=== PATIENT | male | born 1990 | race Caucasian/White ===

== ENCOUNTER 2016-12-10 19:18 | Emergency (ER) | payer SELFPAY ==
[~2016-12-10] VITALS: Ht 177.8 cm; Wt 72.0 kg
[~2016-12-10 19:18] MED LIST: IBUP800T23 PO
[2016-12-10 19:59] VITALS: BP 120/76; PULSE 82; RESP 18; TEMP 99; O2SAT 99
--- NOTE | 2016-12-10 20:07 | PD ---
HPI Chief Complaint: Cold / Flu Symptoms Time Seen by Provider: 20:07 PFSH Past Medical History Diminished Hearing: No Social History Alcohol Use: Yes (OCCASIONAL) Tobacco Use: Yes Substance Use: No Allergies-Medications (Allergen,Severity, Reaction): Coded Allergies: No Known Allergies (Unverified , 12/10/16) Reported Meds & Prescriptions Reported Meds & Active Scripts Active No Active Prescriptions or Reported Medications Data Data Last Documented VS Vital Signs Date Time Temp Pulse Resp B/P Pulse Ox O2 Delivery O2 Flow Rate FiO2 12/10/16 20:08 18 99 Room Air 12/10/16 19:59 99.0 82 120/76 Orders Electrocardiogram (12/10/16 20:21) Ckmb (Isoenzyme) Profile (12/10/16 20:21) Complete Blood Count With Diff (12/10/16 20:21) Comprehensive Metabolic Panel (12/10/16 20:21) D-Dimer (12/10/16 20:21) Prothrombin Time / Inr (Pt) (12/10/16 20:21) Act Partial Throm Time (Ptt) (12/10/16 20:21) Troponin I (12/10/16 20:21) Lipase (12/10/16 20:21) Chest, Single Ap (12/10/16 20:21) Ecg Monitoring (12/10/16 20:21) Iv Access Insert/Monitor (12/10/16 20:21) Oximetry (12/10/16 20:21) Sodium Chloride 0.9% Flush (Ns Flush) (12/10/16 20:30) Sodium Chlorid 0.9% 500 Ml Inj (Ns 500 M (12/10/16 20:30) Drug Screen, Random Urine (12/10/16 20:21) Influenzae A/B Antigen (12/10/16 20:21) Ketorolac Inj (Toradol Inj) (12/10/16 20:30) MDM Scripts No Active Prescriptions or Reported Meds Tata Andrews Dec 10, 2016 20:07
[2016-12-10] MEDS ORDERED: KETOROLAC TROMETHAMINE 30 MG/ML (IVP) VIAL IV PUSH ONE (20:30)
[2016-12-10] MEDS ORDERED: SODIUM CHLORIDE 0.9% FLUSH 10 ML FLUSH IVF PRN (20:30)
[2016-12-10] MEDS ORDERED: SODIUM CHLORID 0.9% 500 ML INJ 500 ML IV ONE (20:30)
--- NOTE | 2016-12-10 20:32 | PD ---
HPI Chief Complaint: Chest Pain Time Seen by Provider: 20:07 Travel History International Travel<30 days: No Contact w/Intl Traveler<30days: No Traveled to known affect area: No History of Present Illness HPI Patient is a 26-year-old male who presents to emergency room with complaints of chest pain. Patient reports that he has been having left-sided sharp, stabbing pain to his left chest which radiates to his shoulder and back which has been ongoing for the past 2 days. Patient reports that nothing makes the pain better , reports that taking a deep breath makes his symptoms worse. Denies any recent travels or trips. Patient does report that his had a slight URI over the past 2 days. Patient denies history of hypertension, hyperlipidemia, coronary disease, denies history of chest pain in the past. Patient is a smoker , reports that he does abuse illegal drugs (opiates) and denies use of cocaine. Denies family history of [place], CAD. Patient reports that he was seen at [facility] 2 days ago and was discharged after he was given some pain medications and had an EKG obtained. [facility] Past Medical History Medical History: Denies Significant Hx Diminished Hearing: No Tetanus Vaccination: > 5 Years Influenza Vaccination: No Past Surgical History Surgical History: No Previous Surgery Family History Family History: Negative Family Myocardial Infarction: No Social History Alcohol Use: Yes (OCCASIONAL) Tobacco Use: Yes Substance Use: Yes (opiates) Allergies-Medications (Allergen,Severity, Reaction): Coded Allergies: No Known Allergies (Unverified , 12/10/16) Reported Meds & Prescriptions Reported Meds & Active Scripts Active No Active Prescriptions or Reported Medications Review of Systems General / Constitutional: No: Fever Eyes: No: Visual changes HENT: No: Headaches Cardiovascular: Positive: Chest Pain or Discomfort Respiratory: Positive: Cough, Shortness of Breath Gastrointestinal: No: Abdominal Pain Genitourinary: No: Dysuria Musculoskeletal: No: Pain Skin: No Rash Neurologic: No: Weakness Psychiatric: No: Depression Endocrine: No: Polydipsia Hematologic/Lymphatic: No: Easy Bruising Physical Exam Narrative GENERAL: No acute distress, nontoxic SKIN: Warm and dry. HEAD: Atraumatic. Normocephalic. EYES: Pupils equal and round. No scleral icterus. No injection or drainage. ENT: No nasal bleeding or discharge. Mucous membranes pink and moist. NECK: Trachea midline. No JVD. CARDIOVASCULAR: Regular rate and rhythm. No murmur appreciated. RESPIRATORY: No accessory muscle use. Clear to auscultation. Breath sounds equal bilaterally. GASTROINTESTINAL: Abdomen soft, non-tender, nondistended. Hepatic and splenic margins not palpable. MUSCULOSKELETAL: No obvious deformities. No clubbing. No cyanosis. No edema. NEUROLOGICAL: Awake and alert. Normal speech. PSYCHIATRIC: Appropriate mood and affect; insight and judgment normal. Data Data Last Documented VS Vital Signs Date Time Temp Pulse Resp B/P Pulse Ox O2 Delivery O2 Flow Rate FiO2 12/10/16 20:36 99 Room Air 12/10/16 20:08 18 12/10/16 19:59 99.0 82 120/76 Orders Electrocardiogram (12/10/16 20:21) Ckmb (Isoenzyme) Profile (12/10/16 20:21) Complete Blood Count With Diff (12/10/16 20:21) Comprehensive Metabolic Panel (12/10/16 20:21) D-Dimer (12/10/16 20:21) Prothrombin Time / Inr (Pt) (12/10/16 20:21) Act Partial Throm Time (Ptt) (12/10/16 20:21) Troponin I (12/10/16 20:21) Lipase (12/10/16 20:21) Chest, Single Ap (12/10/16 20:21) Ecg Monitoring (12/10/16 20:21) Iv Access Insert/Monitor (12/10/16 20:21) Oximetry (12/10/16 20:21) Sodium Chloride 0.9% Flush (Ns Flush) (12/10/16 20:30) Sodium Chlorid 0.9% 500 Ml Inj (Ns 500 M (12/10/16 20:30) Drug Screen, Random Urine (12/10/16 20:21) Influenzae A/B Antigen (12/10/16 20:21) Ketorolac Inj (Toradol Inj) (12/10/16 20:30) CKMB (12/10/16 20:30) CKMB% (12/10/16 20:30) Ct Pulmonary Angiogram (12/10/16 21:11) Electrocardiogram (12/10/16 ) Iohexol 350 Inj (Omnipaque 350 Inj) (12/10/16 21:52) Labs Laboratory Tests Test 12/10/16 20:30 White Blood Count 7.3 TH/MM3 Red Blood Count 5.15 MIL/MM3 Hemoglobin 15.3 GM/DL Hematocrit 45.4 % Mean Corpuscular Volume 88.3 FL Mean Corpuscular Hemoglobin 29.8 PG Mean Corpuscular Hemoglobin 33.7 % Concent Red Cell Distribution Width 11.5 % Platelet Count 359 TH/MM3 Mean Platelet Volume 7.0 FL Neutrophils (%) (Auto) 60.9 % Lymphocytes (%) (Auto) 26.2 % Monocytes (%) (Auto) 8.9 % Eosinophils (%) (Auto) 3.0 % Basophils (%) (Auto) 1.0 % Neutrophils # (Auto) 4.5 TH/MM3 Lymphocytes # (Auto) 1.9 TH/MM3 Monocytes # (Auto) 0.6 TH/MM3 Eosinophils # (Auto) 0.2 TH/MM3 Basophils # (Auto) 0.1 TH/MM3 CBC Comment DIFF FINAL Differential Comment Prothrombin Time 10.7 SEC Prothromb Time International 1.0 RATIO Ratio Activated Partial 30.8 SEC Thromboplast Time D-Dimer Quantitative (PE/DVT) 0.59 MG/L FEU Sodium Level 141 MEQ/L Potassium Level 3.9 MEQ/L Chloride Level 104 MEQ/L Carbon Dioxide Level 30.5 MEQ/L Anion Gap 7 MEQ/L Blood Urea Nitrogen 13 MG/DL Creatinine 1.10 MG/DL Estimat Glomerular Filtration 82 ML/MIN Rate Random Glucose 69 MG/DL Calcium Level 8.6 MG/DL Total Bilirubin 0.3 MG/DL Aspartate Amino Transf 12 U/L (AST/SGOT) Alanine Aminotransferase 24 U/L (ALT/SGPT) Alkaline Phosphatase 62 U/L Total Creatine Kinase 152 U/L Creatine Kinase MB 1.6 NG/ML Troponin I LESS THAN 0.02 NG/ML Total Protein 7.7 GM/DL Albumin 3.5 GM/DL Lipase 98 U/L [facility] Medical Decision Making Medical Screen Exam Complete: Yes Emergency Medical Condition: Yes Interpretation(s) EKG at 1922: Normal sinus rhythm at 82 bpm, qt/qtc: 366/404, no acute st or t wave changes Repeat ekg at 2100: NSR at 73bpm, qt/qtc: 392/414, no acute st or t wave changes Vital Signs Date Time Temp Pulse Resp B/P Pulse Ox O2 Delivery O2 Flow Rate FiO2 3/23/17 20:08 18 99 Room Air 12/10/16 19:59 99.0 82 18 120/76 99 CBC & BMP Diagram 12/10/16 20:30 Microbiology Date/Time Procedure Status Source Growth 12/10/16 20:30 Influenza Types A,B Antigen (MISHA) Received Nasal Aspirate Pending Last Impressions Chest X-Ray 12/10/162020 Signed Impressions: Service Date/Time: November 20:35 - CONCLUSION: Normal examination. Ethan Yost MD Laboratory Tests Test 12/10/16 20:30 White Blood Count 7.3 TH/MM3 (4.0-11.0) Red Blood Count 5.15 MIL/MM3 (4.50-5.90) Hemoglobin 15.3 GM/DL (13.0-17.0) Hematocrit 45.4 % (39.0-51.0) Mean Corpuscular Volume 88.3 FL (80.0-100.0) Mean Corpuscular Hemoglobin 29.8 PG (27.0-34.0) Mean Corpuscular Hemoglobin 33.7 % Concent (32.0-36.0) Red Cell Distribution Width 11.5 % (11.6-17.2) Platelet Count 359 TH/MM3 (150-450) Mean Platelet Volume 7.0 FL (7.0-11.0) Neutrophils (%) (Auto) 60.9 % (16.0-70.0) Lymphocytes (%) (Auto) 26.2 % (9.0-44.0) Monocytes (%) (Auto) 8.9 % (0.0-8.0) Eosinophils (%) (Auto) 3.0 % (0.0-4.0) Basophils (%) (Auto) 1.0 % (0.0-2.0) Neutrophils # (Auto) 4.5 TH/MM3 (1.8-7.7) Lymphocytes # (Auto) 1.9 TH/MM3 (1.0-4.8) Monocytes # (Auto) 0.6 TH/MM3 (0-0.9) Eosinophils # (Auto) 0.2 TH/MM3 (0-0.4) Basophils # (Auto) 0.1 TH/MM3 (0-0.2) CBC Comment DIFF FINAL Differential Comment Prothrombin Time 10.7 SEC (9.8-11.6) Prothromb Time International 1.0 RATIO Ratio Activated Partial 30.8 SEC Thromboplast Time (24.3-30.1) D-Dimer Quantitative (PE/DVT) 0.59 MG/L FEU (0.00-0.50) Sodium Level 141 MEQ/L (136-145) Potassium Level 3.9 MEQ/L (3.5-5.1) Chloride Level 104 MEQ/L (98-107) Carbon Dioxide Level 30.5 MEQ/L (21.0-32.0) Anion Gap 7 MEQ/L (5-15) Blood Urea Nitrogen 13 MG/DL (7-18) Creatinine 1.10 MG/DL (0.60-1.30) Estimat Glomerular Filtration 82 ML/MIN (>89) Rate Random Glucose 69 MG/DL (74-106) Calcium Level 8.6 MG/DL (8.5-10.1) Total Bilirubin 0.3 MG/DL (0.2-1.0) Aspartate Amino Transf 12 U/L (15-37) (AST/SGOT) Alanine Aminotransferase 24 U/L (12-78) (ALT/SGPT) Alkaline Phosphatase 62 U/L (45-117) Total Creatine Kinase 152 U/L (39-308) Creatine Kinase MB 1.6 NG/ML (0.5-3.6) Troponin I LESS THAN 0.02 NG/ML (0.02-0.05) Total Protein 7.7 GM/DL (6.4-8.2) Albumin 3.5 GM/DL (3.4-5.0) Lipase 98 U/L (73-393) Last Impressions CT Angiography 12/10/162110 Signed Impressions: Service Date/Time: November 21:35 - CONCLUSION: 1. Negative for pulmonary embolus. No focal consolidation or effusion. Small 3 mm nodule left lower lobe. Ethan Yost MD Chest X-Ray 12/10/162020 Signed Impressions: Service Date/Time: November 20:35 - CONCLUSION: Normal examination. Ethan Yost MD Differential Diagnosis ACS, arrhythmia, PE, pneumothorax, drug abuse, costochondritis, electrolyte abnormality Narrative Course Patient is a 26-year-old male who presents to emergency room with complaints of chest pain. Patient reports that he has been having left-sided chest pain which is sharp and stabbing in nature and radiates to his shoulder into his back. Patient reports that pain has been constant for the past 2 days associated shortness of breath. Patient was seen at report this 2 days ago, reports that he had a normal workup and was sent home. Patient reports that he is still having pain. EKG obtained upon arrival to emergency room. EKG with no acute ST-T wave changes. Patient was placed on a telemetry monitor. Labs as well as cardiac enzymes and x-ray of the chest ordered to further evaluate symptoms. I do not believe the patient is having ACS at this time, his symptoms are atypical for cardiac chest pain. Given that he has had a recent URI, 1 set of troponin was sent to evaluate for possible pericarditis or myocarditis or infectious etiology of his chest pain. We'll medicate patient with Toradol for pain, will continue to monitor patient on a telemetry monitor. X-ray chest ordered to evaluate for possible pneumothorax. Laboratory Tests Test 12/10/16 20:30 White Blood Count 7.3 TH/MM3 (4.0-11.0) Red Blood Count 5.15 MIL/MM3 (4.50-5.90) Hemoglobin 15.3 GM/DL (13.0-17.0) Hematocrit 45.4 % (39.0-51.0) Mean Corpuscular Volume 88.3 FL (80.0-100.0) Mean Corpuscular Hemoglobin 29.8 PG (27.0-34.0) Mean Corpuscular Hemoglobin 33.7 % Concent (32.0-36.0) Red Cell Distribution Width 11.5 % (11.6-17.2) Platelet Count 359 TH/MM3 (150-450) Mean Platelet Volume 7.0 FL (7.0-11.0) Neutrophils (%) (Auto) 60.9 % (16.0-70.0) Lymphocytes (%) (Auto) 26.2 % (9.0-44.0) Monocytes (%) (Auto) 8.9 % (0.0-8.0) Eosinophils (%) (Auto) 3.0 % (0.0-4.0) Basophils (%) (Auto) 1.0 % (0.0-2.0) Neutrophils # (Auto) 4.5 TH/MM3 (1.8-7.7) Lymphocytes # (Auto) 1.9 TH/MM3 (1.0-4.8) Monocytes # (Auto) 0.6 TH/MM3 (0-0.9) Eosinophils # (Auto) 0.2 TH/MM3 (0-0.4) Basophils # (Auto) 0.1 TH/MM3 (0-0.2) CBC Comment DIFF FINAL Differential Comment Prothrombin Time 10.7 SEC (9.8-11.6) Prothromb Time International 1.0 RATIO Ratio Activated Partial 30.8 SEC Thromboplast Time (24.3-30.1) D-Dimer Quantitative (PE/DVT) 0.59 MG/L FEU (0.00-0.50) Sodium Level 141 MEQ/L (136-145) Potassium Level 3.9 MEQ/L (3.5-5.1) Chloride Level 104 MEQ/L (98-107) Carbon Dioxide Level 30.5 MEQ/L (21.0-32.0) Anion Gap 7 MEQ/L (5-15) Blood Urea Nitrogen 13 MG/DL (7-18) Creatinine 1.10 MG/DL (0.60-1.30) Estimat Glomerular Filtration 82 ML/MIN (>89) Rate Random Glucose 69 MG/DL (74-106) Calcium Level 8.6 MG/DL (8.5-10.1) Total Bilirubin 0.3 MG/DL (0.2-1.0) Aspartate Amino Transf 12 U/L (15-37) (AST/SGOT) Alanine Aminotransferase 24 U/L (12-78) (ALT/SGPT) Alkaline Phosphatase 62 U/L (45-117) Total Creatine Kinase 152 U/L (39-308) Troponin I LESS THAN 0.02 NG/ML (0.02-0.05) Total Protein 7.7 GM/DL (6.4-8.2) Albumin 3.5 GM/DL (3.4-5.0) Lipase 98 U/L (73-393) Last Impressions Chest X-Ray 12/10/162020 Signed Impressions: Service Date/Time: November 20:35 - CONCLUSION: Normal examination. Ethan Yost MD Patient reevaluated, patient is feeling better after he received 15 mg of Toradol. Patient does have a positive d-dimer, discussed with him need to send him for PE chest to evaluate for possible PE. Patient agreeable to further testing. Influenza a and B antigen negative CTA pending Last Impressions CT Angiography 12/10/162110 Signed Impressions: Service Date/Time: November 21:35 - CONCLUSION: 1. Negative for pulmonary embolus. No focal consolidation or effusion. Small 3 mm nodule left lower lobe. Ethan Yost MD Chest X-Ray 12/10/162020 Signed Impressions: Service Date/Time: , December 10, 2016 20:35 - CONCLUSION: Normal examination. Ethan Yost MD Repeat ekg at 2100: NSR at 73bpm, qt/qtc: 392/414, no acute st or t wave changes Patient is feeling much better at this time. Copies of patient's studies were given to him as he will need to follow-up with all studies including pulmonary nodule. 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 Patient with low risk for cardiac chest pain. Given that this is second visit to the emergency room for chest pain, will give him referral to cardiology for outpatient workup. I discussed with patient that he is low risk for true cardiac chest pain and patient is agreeable to outpatient workup. Signs and symptoms of when to return to the emergency room was reviewed with patient in detail. Diagnosis Primary Impression: Costochondritis, acute Additional Impressions: Chest pain Qualified Code: R07.9 - Chest pain, unspecified type Pulmonary nodule Smoking addiction Referrals: Jimenez Bright MD, Vincent G DO Patient Instructions: General Instructions Additional Instructions: Please provide patient with a copy of his lab work and studies at discharge Please follow-up with your primary care doctor in 2-3 days Please follow-up with customer care representative as outpatient Return to the emergency room as needed Return to emergency with symptoms return Please bring your CT Chest result to your doctor's office as you will need to follow up on the lung nodule seen on your studies from today Med/Other Pt SpecificInfo: Prescription(s) given Scripts Naproxen 500 Mg [id number] Mg PO BID #60 TAB Ref 0 Prov:Agueda Thornton DO 12/10/16 Disposition: 01 DISCHARGE HOME Condition: Stable Agueda Thornton DO Dec 10, 2016 20:32
[2016-12-10 20:36] VITALS: O2SAT 99
[2016-12-10 20:53] LABS: CHLORIDE 104 MEQ/L (98-107); POTASSIUM 3.9 MEQ/L (3.5-5.1); SODIUM (NA) 141 MEQ/L (136-145)
[2016-12-10 20:54] LABS: AUTOMATED NEUTROPHIL # 4.5 TH/MM3 (1.8-7.7); BASOPHIL # 0.1 TH/MM3 (0-0.2); EOSINOPHIL # 0.2 TH/MM3 (0-0.4); HEMATOCRIT 45.4 % (39.0-51.0); HEMO FLAGS DIFF FINAL; LYMPH % 26.2 % (9.0-44.0); LYMPHOCYTE # 1.9 TH/MM3 (1.0-4.8); MEAN CELL VOLUME 88.3 FL (80.0-100.0); MEAN CORPUSCULAR HEMOGLOBIN 29.8 PG (27.0-34.0); MEAN CORPUSCULAR HGB CONC 33.7 % (32.0-36.0); MONO % 8.9 % (0.0-8.0); NEUT % 60.9 % (16.0-70.0); PLATELET COUNT 359 TH/MM3 (150-450); RED BLOOD COUNT 5.15 MIL/MM3 (4.50-5.90); RED CELL DISTRIBUTION WIDTH 11.5 % (11.6-17.2); WHITE BLOOD COUNT 7.3 TH/MM3 (4.0-11.0)
[2016-12-10 20:57] LABS: ANION GAP 7 MEQ/L (5-15); BICARBONATE 30.5 MEQ/L (21.0-32.0); BLOOD UREA NITROGEN 13 MG/DL (7-18)
[2016-12-10 20:59] LABS: ALT (GPT) 24 U/L (12-78); AST (GOT) 12 U/L (15-37)
[2016-12-10 21:00] LABS: GLOMERULAR FILTRATION RATE 82 ML/MIN (>89)
[2016-12-10 21:01] LABS: APTT (PATIENT) 30.8 SEC (24.3-30.1); PROTHROMBIN TIME - PATIENT 10.7 SEC (9.8-11.6); TOTAL BILIRUBIN ADULT 0.3 MG/DL (0.2-1.0)
[2016-12-10 21:02] LABS: ALKALINE PHOSPHATASE 62 U/L (45-117); CREATINE KINASE 152 U/L (39-308)
--- NOTE | 2016-12-10 21:02 | RADHPO ---
EXAM DATE/TIME: 12/10/2016 20:35 [facility] COMPARISON: No previous studies available for comparison. INDICATIONS : Chest pain. MEDICAL HISTORY : None. SURGICAL HISTORY : None. ENCOUNTER: Initial ACUITY: 3 days PAIN SCORE: 8/10 LOCATION: Bilateral chest FINDINGS: A single view of the chest demonstrates the lungs to be symmetrically aerated without evidence of mas s, infiltrate or effusion. The cardiomediastinal contours are unremarkable. Osseous structures are intact. CONCLUSION: Normal examination. Ethan Yost MD on December 10, 2016 at 21:00 Board Certified Radiologist. This report was verified electronically.
[2016-12-10 21:15] LABS: CKMB 1.6 NG/ML (0.5-3.6)
[2016-12-10] MEDS ORDERED: IOHEXOL 350 MG/ML 10 ML VIAL (for RAD DIAG) IV ONE (21:52)
[2016-12-10 22:00] VITALS: BP 122/80; PULSE 74; RESP 18; O2SAT 99
--- NOTE | 2016-12-10 22:06 | RADHPO ---
EXAM DATE/TIME: 12/10/2016 21:35 [facility] COMPARISON: No previous studies available for comparison. INDICATIONS : Chest pain for five days. IV CONTRAST: 75 cc Omnipaque 350 (iohexol) IV RADIATION DOSE: 9.31 CTDIvol (mGy) MEDICAL HISTORY : None SURGICAL HISTORY : None. ENCOUNTER: Initial ACUITY: 4 - 6 days PAIN SCALE: 7/10 LOCATION: chest TECHNIQUE: Volumetric scanning of the chest was performed using a pulmonary embolism protocol MIP images were re constructed. Using automated exposure control and adjustment of the mA and/or kV according to patien t size, radiation dose was kept as low as reasonably achievable to obtain optimal diagnostic quality images. FINDINGS: PULMONARY ARTERIES: No filling defects are seen in the pulmonary arteries through the segmental level. LUNGS: There is no consolidation or pneumothorax . Small 3 mm nodule left lower lobe. PLEURAE: There is no pleural thickening or pleural effusion. MEDIASTINUM: There is good visualization of the great vessels of the middle mediastinum. No evidence of mediastin al or hilar adenopathy/mass. MUSCULOSKELETAL: Within normal limits for patient age. MISCELLANEOUS: The visualized upper abdominal organs demonstrate no acute abnormality. CONCLUSION: 1. Negative for pulmonary embolus. No focal consolidation or effusion. Small 3 mm nodule left lower l obe. Ethan Yost MD on December 10, 2016 at 21:59 Board Certified Radiologist. This report was verified electronically.
[2016-12-10] MEDS ORDERED: NAPR500T PO (22:20)
--- NOTE | 2016-12-12 11:10 | EKG ---
Date Performed: 12/10/2016 Time Performed: 21:01:42 PTAGE: 26 years EKG: Sinus rhythm Normal ECG PREVIOUS TRACING : 12/10/2016 19.23 DOCTOR: Julia Grant Interpretating Date/Time 12/12/2016 11:05:32
--- NOTE | 2016-12-12 11:12 | EKG ---
Date Performed: 12/10/2016 Time Performed: 19:23:06 PTAGE: 26 years EKG: Sinus rhythm Normal ECG NO PREVIOUS TRACING DOCTOR: Julia Grant Interpretating Date/Time 12/12/2016 11:07:52
== END 2016-12-10 23:08 | disposition home or self-care (01) ==
LOC: PHEFT 19:18
DX: M94.0 Chondrocostal junction syndrome [Tietze] (principal); R91.1 Solitary pulmonary nodule; F17.210 Nicotine dependence, cigarettes, uncomplicated; F11.20 Opioid dependence, uncomplicated
CPT/HCPCS: 71010; 71275; 80053; 82550; 82552; 83690; 84484; 85025; 85379; 85610; 85730; 87804; 93005; J1885; J7040; Q9967; 96361; 96374

== ENCOUNTER 2018-07-04 14:20 | Inpatient (IN) ==
[2018-07-04] MEDS ORDERED: Sod Chloride 0.9% Inj 1,000 ML IV.CONT SCH (14:45)
[2018-07-04 14:56] LABS: Baso # (Auto) 0.1 th/mm3 (0.0-0.2); Baso % (Auto) 0.9 % (0.0-2.0); Eos # (Auto) 0.1 th/mm3 (0.0-0.4); Eos % (Auto) 1.3 % (0.0-4.0); Hematocrit 42.6 % (39.0-51.0); Hemoglobin 14.8 gm/dL (13.0-17.0); Lymph # (Auto) 1.9 th/mm3 (1.0-4.8); Lymph % (Auto) 22.2 % (9.0-44.0); Mean Corpuscular HGB Conc 34.8 % (32.0-36.0); Mean Corpuscular Hemoglobin 31.3 pg (27.0-34.0); Mean Corpuscular Volume 90.1 fL (80.0-100.0); Mono # (Auto) 0.7 th/mm3 (0.0-0.9); Mono % (Auto) 8.4 % (0.0-8.0); Neut # (Auto) 5.8 th/mm3 (1.8-7.7); Neut % (Auto) 67.2 % (16.0-70.0); Platelet Count 312 th/mm3 (150-450); Red Blood Count 4.73 mil/mm3 (4.50-5.90); Red Cell Distribution Width 12.5 % (11.6-17.2); White Blood Count 8.6 th/mm3 (4.0-11.0)
[2018-07-04] MEDS ORDERED: Morphine Inj 4 MG/ML Vial IV.PUSH ONE ×3 (15:08→16:46)
[2018-07-04 15:11] LABS: Activated Partial Thrombo Time 24.2 sec (24.3-30.1); Prothrombin Time 9.9 sec (9.8-11.6)
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
[2018-07-04] MEDS ORDERED: HYDROmorphone PF Inj 0.5 MG/0.5 ML Syringe IV.PUSH PRN (18:10)
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
[2018-07-04] MEDS: HYDROmorphone PF Inj 2 MG/ML Vial IV.PUSH PRN ×2 (18:44→22:56)
[2018-07-04] MEDS: Sod Chloride 0.9% Inj 1,000 ML IV.CONT SCH (20:17)
[2018-07-05] MEDS: HYDROmorphone PF Inj 2 MG/ML Vial IV.PUSH PRN ×2 (03:10→08:54)
[2018-07-05] MEDS: Sod Chloride 0.9% Inj 1,000 ML IV.CONT SCH ×2 (05:43→18:02)
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
[2018-07-05 07:20] LABS: Baso # (Auto) 0.1 th/mm3 (0.0-0.2); Baso % (Auto) 0.6 % (0.0-2.0); Eos # (Auto) 0.4 th/mm3 (0.0-0.4); Eos % (Auto) 3.3 % (0.0-4.0); Hematocrit 44.4 % (39.0-51.0); Hemoglobin 15.3 gm/dL (13.0-17.0); Lymph # (Auto) 2.1 th/mm3 (1.0-4.8); Lymph % (Auto) 16.7 % (9.0-44.0); Mean Corpuscular HGB Conc 34.6 % (32.0-36.0); Mean Corpuscular Hemoglobin 31.1 pg (27.0-34.0); Mean Platelet Volume 7.7 fL (7.0-11.0); Mono % (Auto) 8.2 % (0.0-8.0); Neut # (Auto) 8.8 th/mm3 (1.8-7.7); Neut % (Auto) 71.2 % (16.0-70.0); Platelet Count 321 th/mm3 (150-450); Red Blood Count 4.93 mil/mm3 (4.50-5.90); Red Cell Distribution Width 12.7 % (11.6-17.2); White Blood Count 12.4 th/mm3 (4.0-11.0)
[2018-07-05 07:45] LABS: Albumin 3.7 g/dL (3.4-5.0); Anion Gap 9 meq/L (5-15); Aspartate Aminotransferase 28 U/L (15-37); Blood Urea Nitrogen 8 mg/dL (7-18); Calcium 8.8 mg/dL (8.5-10.1); Carbon Dioxide 24.8 meq/L (21.0-32.0); Chloride 102 meq/L (98-107); Glomerular Filtration Rate Greater Than 89 mL/min (>89); Glucose,Random 91 mg/dL (74-106); Potassium 3.8 meq/L (3.5-5.1); Sodium 136 meq/L (136-145)
[2018-07-05 07:47] LABS: Alanine Aminotransferase 45 U/L (12-78)
[2018-07-05 07:49] LABS: Alkaline Phosphatase 57 U/L (45-117); Total Protein 7.9 g/dL (6.4-8.2)
[2018-07-05] MEDS ORDERED: Chlorhexidine Gluconate 2% 1 Pack (2 Cloths) TOPICAL ONE (11:45)
[2018-07-05] MEDS ORDERED: Metoprolol Tartrate 25 MG Tablet PO ONE (11:45)
[2018-07-05] MEDS ORDERED: Sodium Chlor 0.9% Inj 500 ML IV.CONT ONE (11:45)
[2018-07-05] MEDS ORDERED: Glycopyrrolate Inj 1 MG/5 ML Syringe IV.PUSH ONE (13:12)
[2018-07-05] MEDS ORDERED: Ketorolac Inj 30 MG/ML (IVP) Vial IV.PUSH ONE (13:12)
[2018-07-05] MEDS ORDERED: Neostigmine Inj 5 MG/5 ML Syringe IV.PUSH ONE (13:12)
[2018-07-05] MEDS ORDERED: Lidocaine PF 1% Inj 5 ML Syringe OTHER ONE (13:12)
[2018-07-05] MEDS ORDERED: Post-op Orders (for Pharmacy) OTHER STA (14:44)
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
[2018-07-05] MEDS ORDERED: *Meperidine Inj 25 MG/ML Vial PERIprocedural Use ONLY ONE (15:29)
[2018-07-05] MEDS ORDERED: fentaNYL Citrate Inj 100 MCG/2 ML Ampul ONE ×2 (15:30)
[2018-07-05] MEDS ORDERED: *morphine SULFATE 4 MG/ML PERIprocedure ONLY ONE (15:42)
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
[2018-07-05] MEDS: Calcium/Vitamin D 250/125 MG Tablet PO SCH (18:02)
[2018-07-05] MEDS: ceFAZolin Inj 2,000 MG in Sodium Chlor 0.9% Inj 80 ML IV.SIG SCH (21:22)
[2018-07-05] MEDS: Senna/Docusate Sodium 8.6/50 MG Tablet PO SCH (21:23)
[2018-07-06] MEDS: Sod Chloride 0.9% Inj 1,000 ML IV.CONT SCH (01:46)
[2018-07-06] MEDS: ceFAZolin Inj 2,000 MG in Sodium Chlor 0.9% Inj 80 ML IV.SIG SCH (05:06)
--- NOTE | 2018-07-06 06:50 | P.DCO ---
- Occupational Therapy Right Upper Extremity Weight Bearing: Non-weight bearing Right Upper Extremity Range of Motion: Pendular - Nursing Dressing changes: Daily dressing change, Xeroform, Coverderm/Primapore - Certification Need for Home Health services: I have seen patient Hugo Franco on 07/06/18. My clinical findings support the need for the requested home health care services because: Need for Home Health Services: Limited mobility due to disease progression Homebound Certification: I certify that my clinical findings support that this patient is homebound because: Homebound Certification: Post-op weakness
--- NOTE | 2018-07-06 06:50 | P.PNOP ---
Subjective Interval history: POD 1 s/p ORIF right distal humerus fx doing well. states pain in arm but controlled. still reports weakness of hand Physical Exam Vital signs: Vital Signs 07/05/18 08:00 07/05/18 15:20 07/05/18 15:35 Temperature 97.9 F 98.0 F Pulse Rate 58 L 58 L 59 L Respiratory Rate 17 20 18 Blood Pressure 140/75 136/88 117/67 Pulse Oximetry 97 100 100 07/05/18 15:50 07/05/18 16:00 07/05/18 19:07 Temperature 98.2 F 98.0 F Pulse Rate 57 L 55 L 59 L Respiratory Rate 18 20 17 Blood Pressure 136/88 151/88 H 134/74 Pulse Oximetry 100 100 95 07/05/18 20:45 07/05/18 22:50 07/06/18 00:00 Temperature 98.3 F Pulse Rate 89 Respiratory Rate 17 18 15 Blood Pressure 131/67 Pulse Oximetry 99 07/06/18 04:00 07/06/18 05:06 Temperature 98.0 F Pulse Rate 86 Respiratory Rate 15 18 Blood Pressure 139/69 Pulse Oximetry 97 Intake & Output 07/05/18 07/05/18 07/06/18 06:59 18:59 06:59 Intake Total 1000 / 1000 2240 / 2240 700 / 700 Output Total 75 / 75 Balance 1000 / 1000 2165 / 2165 700 / 700 Weight 90.718 kg 71.5 kg Intake: IV 1000 / 1000 1000 / 1000 200 / 200 NS Inj 1,000 ML @ 100 mls/hr IV 1000 / 1000 1000 / 1000 .CONT .Q10H [facility] Rx#:[id number] Ancef Inj 2,000 MG In NS Inj 80 200 / 200 ML @ 200 mls/hr IV.SIG Q8H [facility] Rx#:[id number] Oral 240 / 240 500 / 500 Anesthesia Amount 1000 / 1000 Output: Estimated Blood Loss 75 / 75 Other: # Voids 1 4 Date of Last Bowel Movement 07/04/18 07/04/18 Weight On Admission 90.718 kg Narrative: RUE: +long arm splint. intact. full sensation to median/ulnar nerve. weakness to extension of wrist and fingers Results - Labs CBC & Chem 7: 07/05/18 05:37 07/05/18 05:37 Laboratory Results - last 24 hr 07/05/18 07/05/18 05:37 05:37 WBC 12.4 H RBC 4.93 Hgb 15.3 Hct 44.4 MCV 90.0 MCH 31.1 MCHC 34.6 RDW 12.7 Plt Count 321 MPV 7.7 Neut % (Auto) 71.2 H Lymph % (Auto) 16.7 [place] % (Auto) 8.2 H Eos % (Auto) 3.3 Baso % (Auto) 0.6 Neut # (Auto) 8.8 H Lymph # (Auto) 2.1 [place] # (Auto) 1.0 H Eos # (Auto) 0.4 Baso # (Auto) 0.1 WBC Differential . Differential Comment Auto diff final Sodium 136 Potassium 3.8 Chloride 102 Carbon Dioxide 24.8 Anion Gap 9 BUN 8 Creatinine 0.91 Estimated GFR Greater than 89 Random Glucose 91 Calcium 8.8 Total Bilirubin 0.8 AST 28 ALT 45 Alkaline Phosphatase 57 Total Protein 7.9 Albumin 3.7 - Imaging Impressions Elbow X-Ray 07/05/18 00:00 CONCLUSION: ORIF right distal humerus fracture. - Procedures Open reduction internal fixation right distal humerus shaft 07/05 Assessment and Plan - Assessment and Plan 1) Right Distal Humerus Fx s/p ORIF - POD 1 -NWB -will D/C splint today prior to discharge and transition to soft dressings -will order wrist brace to be placed when splint removed for his possible radial nerve palsy -ortho clear for discharge -daily dressing changes -f/u with Alex or IRINA in 2 weeks [facility] Prescription Drug Monitoring Database has been queried and verified prior to prescribing the controlled substance. Acute pain exception. This patient has normal, predicted, physiological, and time limited response to an adverse mechanical stimulus associated with surgery, trauma, or acute illness as described in my notes. There is a lack of alternative treatment options other than to include the prescribed narcotic treatment for this condition.
[2018-07-06] MEDS ORDERED: HYDROmorphone PF Inj 1 MG/ML Ampul IV.PUSH PRN (07:31)
[2018-07-06 08:18] LABS: Hematocrit 35.1 % (39.0-51.0); Hemoglobin 12.3 gm/dL (13.0-17.0); Mean Corpuscular Hemoglobin 31.1 pg (27.0-34.0); Mean Corpuscular Volume 88.8 fL (80.0-100.0); Mean Platelet Volume 7.7 fL (7.0-11.0); Platelet Count 330 th/mm3 (150-450); Red Blood Count 3.95 mil/mm3 (4.50-5.90); Red Cell Distribution Width 12.7 % (11.6-17.2); White Blood Count 14.9 th/mm3 (4.0-11.0)
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
[2018-07-06 08:51] LABS: Anion Gap 6 meq/L (5-15); Blood Urea Nitrogen 9 mg/dL (7-18); Calcium 8.1 mg/dL (8.5-10.1); Carbon Dioxide 28.3 meq/L (21.0-32.0); Chloride 102 meq/L (98-107); Glomerular Filtration Rate Greater Than 89 mL/min (>89); Glucose,Random 98 mg/dL (74-106); Potassium 3.7 meq/L (3.5-5.1); Sodium 136 meq/L (136-145)
[2018-07-06] MEDS: Calcium/Vitamin D 250/125 MG Tablet PO SCH (09:21)
[2018-07-06] MEDS: Senna/Docusate Sodium 8.6/50 MG Tablet PO SCH (09:21)
== END 2018-07-06 11:51 | disposition home or self-care (01) ==
LOC: NEDA 14:20 → NEPC 14:20 → NEPFCDU 18:34 → N06 20:48
PROVIDERS: ADMIT Hospitalist; ATTEND Hospitalist